=== PATIENT | female | born 1985 | race Caucasian/White ===

== ENCOUNTER 2023-09-17 12:50 | Emergency (ER) | payer OTHER, SELFPAY ==
[2023-09-17 12:53] VITALS: BP 129/81
--- NOTE | 2023-09-17 14:56 | ED.GENMED ---
History of Present Illness
General
Chief Complaint: Back Pain
Source: patient
Exam Limitations: none
Time Seen by Provider: 09/17/23 14:16
Nursing documentation reviewed up to this point in time: agreed with
History of Present Illness
History of Present Illness:
PT IS A 38 Y/O F with h/o chronic back problems, no chronic mpain meds
bipolar disorder off meds
alcohol abuse history
here with lower back pain x 3 weeks after hurting herself at work lifting a heavy bag of dog food
her boss was aware
went to urgent care and had plain xrays showing some loss of heigh L4/L5 region
she had no signs of fracture
pt was given muscle relaxant
says it wasn't really helping her but she was doing ok until last night; cannot think of anything she did but now very uncofmortalbe to sit or move
nothing taken for pain
denies radiation into her legs, incontinecne
Past History
Past History
ED Past Medical History: Psychiatric and Other (Patient has history of drug abuse, prior drug overdose, depression, and anxiety. )
Social History
Tobacco: Smoker
Drug: Former user
Living: with family
Family History
Family History: Unable to obtain
Phy Exam
Physical Exam
Physical Exam:
GENERAL: Alert , in no apparent distress, standing, slightly bent forward, walking carefully in the room
HEAD: NCAT
NECK: no midline tenderness, active ROM intact, no paraspinal muscle tenderness;
CARDIAC: Regular rate and rhythm, no edema
LUNGS: Clear breath sounds bilaterally, no acute respiratory distress, no wheezes/rales/rhonchi
ABDOMEN: Soft, without focal tenderness, no r/g, no cvat, normal bowel sounds, nondistended
NEUROLOGICAL: Alert and oriented, no focal neuro deficits, CN intact, 5/5 strength, sensation intact, walking carefully able to walk
SKIN: Warm and dry, no skin changes
MUSCULOSKELETAL: No edema, well perfused.
Hips bilaterally normal inspection, nontender
Back: Diffuse mild tenderness across her lower back , no swelling
negative straight leg raise Bilaterally
PSYCH: Normal and appropriate interaction.
Course
Orders/Labs/Results
Orders:
Orders
09/17/23 14:46
Hydrocodone 5/APAP 325 [[place] 5/325] 1 tablet PO NOW STA
Ketorolac [Toradol] 30 mg IM NOW STA
Lumbar Spine Complete, 4 View [CR Lumbar Spine Comp Min 4 Vw*] Urgent
Comment:
Reason For Exam: lower back pain, no trauma
Vital Signs
Initial and Last Documented VS:
Initial Vital Signs
Temp Pulse Resp BP Pulse Ox
98.8 F 80 17 129/81 99
09/17/23 12:53 09/17/23 12:53 09/17/23 12:53 09/17/23 12:53 09/17/23 12:53
Last Documented Vital Signs
Temp Pulse Resp BP Pulse Ox
98.8 F 78 20 117/85 97
09/17/23 12:53 09/17/23 16:14 09/17/23 16:14 09/17/23 16:14 09/17/23 16:14
MDM/Problems Addressed
Differential Diagnosis Includes:
lumbar back pain, msk pain
MDM/Problems Addressed:
38 y/o F with chronic back issues, has never seen ortho
says 3 weeks ago while at work she lifted something heavy and had pain for a few days
had xrays at urgent care showing some DJD in her lower lumbar spine
she was given flexeril and had been taking tylenol an dmotrin
and she did feel better but says that last night she isn't sure what happened but her pain worsened. it is nonraidating, worse with movement, raine with sitting or lying
better if she walks around
no associated weakness/numbness/tingling, incontience, fever, ivda
on exam pt is uncomfortable, walking around the room
diffuse tenderness lower spine and paraspinal muscles
no skin changes
normal sensation
5/5 strength
neg straight leg raise b/l
xrays here show severe DJD l5/s1
no red flag symptoms for cauda equina
pt has h/o bipolar d/o and does not wish to try steroids
meloxicam daily x 7 days
tylenol
lidocinae patch
1 vicodin here for pain
d/c home
pt/outpatient f/u
*Critical Care Note
Total Time (30-74mins, 75-104mins- exclusive of procedures): Not Applicable
ED Attending Note
-
Portions of this chart may have been created with voice recognition software.� Occasional wrong word or��sound alike� substitutions may have occurred due to the inherent limitations of voice recognition software.
Discharge Plan
Departure
Patient Disposition: Home (Routine Discharge)
Date of Disposition: 09/17/23
Time of Disposition: 15:57
Patient with high blood pressure during this ER visit?: No
Condition: Fair
Covid-19: Not Applicable
Discharge Problem:
DDD (degenerative disc disease), lumbar
Instructions: Low Back Pain (DC)
Prescriptions:
New
meloxicam 7.5 mg tablet
7.5 mg PO DAILY Qty: 10 0RF
lidocaine 5 % adhesive patch,medicated
1 patch topical DAILY PRN (Reason: pain) Qty: 15 0RF
No Action
lithium carbonate 300 MG tablet extended release
300 mg PO BID
paroxetine HCl 20 MG tablet
20 mg PO DAILY
Abilify
Patient Comments:
family unsure of dosage
Klonopin
Patient Comments:
family unsure of dosage
Referrals:
Vamshi Hoover MD [Active] - Follow up in 5-7 days
Jorden Mijares MD [Active] - Follow up in 1 week
Tricia Waldron MD [Family Provider] -
Activity Restrictions/Additional Instructions:
You have you do have severe degenerative changes in your lumbar spine at L5/S1. You should follow-up with an orthopedic spine doctor as well as a pain management doctor for further instructions on how to manage his pain. He may need further
testing like an MRI or physical therapy to help. In the meantime try meloxicam once a day instead of ibuprofen. This is an anti-inflammatory. You can also use Tylenol 2 extra strength 3 times a day. Also use of the lidocaine patch 12 hours on,
12 hours off as needed for pain. Return for any concerns like severe numbness or tingling or weakness in the lower legs or back, incontinence, fever or chills or any concerns
Interventions
Interventions:
*Risk Screen - Suicide Last Done: 09/17/23 12:57
*General Assessment Last Done: 09/17/23 12:57
*Neglect/Abuse Screening Last Done: 09/17/23 12:57
ED- Fall Risk Assessment Last Done: 09/17/23 15:10
*ED COVID-19 Vaccine History Last Done: 09/17/23 16:15
*Nursing Disposition Last Done: 09/17/23 16:16
ED-Musculoskeletal Assessment Last Done: 09/17/23 15:10
Discharge Date and Time
Discharge Date/Time: 09/17/23 16:10
Print Language: [place] CITIZ[place]
[2023-09-17] MEDS: NORCO 5/325 1 TABLET PO (15:03)
[2023-09-17] MEDS: TORADOL 30 MG IM (15:05)
[2023-09-17 15:09] VITALS: BMI 24.9
[2023-09-17 16:14] VITALS: BP 117/85
== END 2023-09-17 16:10 | disposition home or self-care (01) ==
LOC: EMR 12:50
PROVIDERS: EMERGENCY PHYSICIAN Emergency Medicine; FAMILY PHYSICIAN Family Medicine
DX: S39.92XA Unspecified injury of lower back, initial encounter (principal); M54.50 Low back pain, unspecified; M51.36 Other intervertebral disc degeneration, lumbar region; X50.0XXA Overexertion from strenuous movement or load, initial encounter; Y93.89 Activity, other specified; Y92.89 Other specified places as the place of occurrence of the external cause; Y99.0 Civilian activity done for income or pay; F31.9 Bipolar disorder, unspecified; F41.9 Anxiety disorder, unspecified; F32.A Depression, unspecified; F17.200 Nicotine dependence, unspecified, uncomplicated; F10.11 Alcohol abuse, in remission; F19.11 Other psychoactive substance abuse, in remission; Z91.51 Personal history of suicidal behavior
CPT/HCPCS: 99284; 96372; 72110